=== PATIENT | male | born 1995 | race African-American/Black ===

== ENCOUNTER 2019-12-17 17:39 | Emergency (ER) | payer MEDICAID ==
[~2019-12-17] VITALS: Ht 167.6 cm; Wt 100.0 kg
[2019-12-17] MEDS ORDERED: ACETAMINOPHEN WITH CODEINE 300/30MG TABLET PO ONE (19:30)
[2019-12-17] MEDS ORDERED: AMOXICILLIN/POTASSIUM CLAVULANATE 875/125MG TAB PO ONE (19:30)
[2019-12-17 19:39] VITALS: BP 131/74
== END 2019-12-17 19:41 | disposition home or self-care (01) ==
LOC: ER 17:39
DX: K02.9 Dental caries, unspecified (principal)
CPT/HCPCS: 99283